=== PATIENT | male | born 1995 | race Caucasian/White ===

== ENCOUNTER 2022-07-27 23:25 | Emergency (ER) | payer SELFPAY ==
[~2022-07-27] VITALS: Ht 154.9 cm; Wt 47.3 kg
[2022-07-28 00:42] LABS: HEMATOCRIT 44.5 % (42.0-52.0); HEMOGLOBIN 14.3 g/dl (13.5-18.0); MEAN CELL VOLUME 80 fl (80.0-100.0); MEAN CORPUSCULAR HEMOGLOBIN 26 pg (27-31); MEAN CORPUSCULAR HGB CONC 32 g/dl (33.0-37.0); MEAN PLATELET VOLUME 9.9 fl (7.4-10.4); PLATELET COUNT 207 K/mm3 (130-400); RED BLOOD COUNT 5.56 M/mm3 (4.20-5.60); REDCELL DISTRIBUTION WIDTH-CV 15.7 % (11.5-14.5)
[2022-07-28 00:51] LABS: ALBUMIN 4.1 gm/dL (3.5-5.0); BILIRUBIN,TOTAL 0.6 mg/dL (0.2-1.2); C-REACTIVE PROTEIN 5.51 mg/dL (0.00-0.50); CALCIUM 9.8 mg/dL (8.4-10.2); CREATININE, serum 0.83 mg/dL (0.72-1.25); POTASSIUM 4.5 mmol/L (3.5-4.5); TOTAL PROTEIN 7.4 gm/dL (6.2-8.1)
[2022-07-28 00:58] LABS: BAND 16 % (0-10); LYMPHOCYTE 2 % (20.0-51.0); NEUTROPHILS 77 % (42.0-75.2); PLATELET ESTIMATE NORMAL (NORMAL)
[2022-07-28 03:54] VITALS: BP 119/78; PULSE 112; TEMP 98.1
== END 2022-07-28 03:54 | disposition home or self-care (01) ==
LOC: COL.ER 23:25
PROVIDERS: Emergency Medicine
DX: N20.0 Calculus of kidney (principal); N99.528 Other complication of incontinent external stoma of urinary tract; J18.9 Pneumonia, unspecified organism; R00.0 Tachycardia, unspecified; Z28.310 Unvaccinated for COVID-19
CPT/HCPCS: A9284; J1170; J1885; J2405; J7030

== ENCOUNTER → 2022-07-27 | Outpatient (CLI) | payer SELFPAY ==
[2022-07-27] VITALS (24 sets, daily range): BP systolic 106–151; BP diastolic 50–104; PULSE 98–118; TEMP 98.2
[~2022-07-27] VITALS: Ht 154.9 cm; Wt 50.8 kg
[~2022-07-27] MED LIST: CIPRO 500MG TA500 MG PO; LEVAQUIN 5500 MG/TA1 PO; NAPROSYN500 MG PO; OMNICEF 300MG300 MG PO; PERCOCET 325 MG1 TA2 PO; ZOFRAN ODT4 MG PO
--- NOTE | 2022-07-27 11:45 | NUR ---
PT VERY AGITATED AND MOVING ON THE TABLE. WAS GIVEN 1 MG VERSED AND 50 MCG [id number] AT 1140. PT SETTLED DOWN.
--- NOTE | 2022-07-27 11:50 | NUR ---
PT STILL MOVING A LITTLE BUT CAN BE REDIRECTED TO STAY STILL.
--- NOTE | 2022-07-27 11:55 | NUR ---
PT AGAIN MOVING . TRAYING TO CRAWL OFF TABLE. GIVEN 1 MG VERSED AND [address] CAMPOS. PT CALMED DOWN.
--- NOTE | 2022-07-27 12:15 | NUR ---
PT AGAIN IS TRYING TO CRAWL OFF THE TABLE . GIVEN 1 MG VERSED AND 50 MCG OF FENTANYL, PER DR CAMPOS. PT CALMED DOWN
== END ==
LOC: COL.RAD 09:45
DX: N20.1 Calculus of ureter (principal)
CPT/HCPCS: J2250; J3010; Q9967

== ENCOUNTER 2022-09-15 20:34 | Emergency (ER) | payer SELFPAY ==
[~2022-09-15] VITALS: Ht 154.9 cm; Wt 47.7 kg
[2022-09-15 20:41] VITALS: TEMP 98.5
[2022-09-15 21:21] LABS: BASO # 0.1 K/mm3 (0.0-0.2); BASO % 0.7 % (0.0-2.0); EOS # 0.3 K/mm3 (0.0-0.7); EOS % 3.6 % (0.0-4.0); GRAN # 4.7 K/mm3 (1.4-6.5); HEMATOCRIT 41.8 % (42.0-52.0); HEMOGLOBIN 13.6 g/dl (13.5-18.0); LYMPH # 2.6 K/mm3 (1.2-3.4); LYMPH % 31.1 % (20.0-51.0); MEAN CELL VOLUME 79 fl (80.0-100.0); MEAN CORPUSCULAR HEMOGLOBIN 26 pg (27-31); MEAN CORPUSCULAR HGB CONC 33 g/dl (33.0-37.0); MEAN PLATELET VOLUME 9.7 fl (7.4-10.4); MONO # 0.7 K/mm3 (0.1-0.6); MONO % 8.5 % (1.7-9.3); PLATELET COUNT 360 K/mm3 (130-400); RED BLOOD COUNT 5.32 M/mm3 (4.20-5.60); REDCELL DISTRIBUTION WIDTH-CV 14.4 % (11.5-14.5)
[2022-09-15 21:43] LABS: ALBUMIN 4.3 gm/dL (3.5-5.0); BILIRUBIN,TOTAL 0.8 mg/dL (0.2-1.2); CALCIUM 9.6 mg/dL (8.4-10.2); CREATININE, serum 0.94 mg/dL (0.72-1.25); POTASSIUM 3.6 mmol/L (3.5-4.5)
[2022-09-15 23:25] LABS: COLLECTION METHOD CLEAN CATCH
[2022-09-15 23:35] LABS: MUCOUS Present (NOT PRESENT); SQUAMOUS EPITHELIAL None Seen /hpf (0-10); URINE BACTERIA Rare /hpf (NONE SEEN); URINE RBC 20-50 /hpf (0-2)
[2022-09-15 23:38] LABS: URINE APPEARANCE Clear (CLEAR/HAZY); URINE COLOR Yellow (YELLOW)
[2022-09-15 23:39] LABS: PH 6.5 (5.0-8.5); URINE BLOOD 3+ (NEGATIVE); URINE GLUCOSE Negative (NEGATIVE); URINE KETONE 4+ (NEGATIVE); URINE NITRATE Negative (NEGATIVE); URINE PROTEIN(semi-quant) 2+ (NEGATIVE); URINE UROBILINOGEN 0.2 E.U/dL (0.2-1.0)
[2022-09-15 23:46] VITALS: BP 128/82; PULSE 86
== END 2022-09-15 23:46 | disposition home or self-care (01) ==
LOC: COL.ER 20:34
PROVIDERS: Emergency Medicine
DX: R33.9 Retention of urine, unspecified (principal); F17.200 Nicotine dependence, unspecified, uncomplicated; Z28.310 Unvaccinated for COVID-19; Z87.442 Personal history of urinary calculi
CPT/HCPCS: J1885; J2270; J3010; J7030

== ENCOUNTER 2023-10-03 14:40 | Emergency (ER) | payer OTHER ==
[~2023-10-03] VITALS: Ht 154.9 cm; Wt 51.4 kg
[~2023-10-03 14:40] MED LIST changes: +ULTRAM 50MG TAB50 MG PO
[2023-10-03 14:44] VITALS: TEMP 98.1
[2023-10-03 15:51] LABS: COLLECTION METHOD CATHETER
[2023-10-03 16:06] LABS: URINE APPEARANCE CLEAR (CLEAR/HAZY); URINE BLOOD NEGATIVE (NEGATIVE); URINE COLOR YELLOW (YELLOW); URINE GLUCOSE NEGATIVE (NEGATIVE); URINE KETONE NEGATIVE (NEGATIVE); URINE NITRATE NEGATIVE (NEGATIVE); URINE PROTEIN(semi-quant) NEGATIVE (NEGATIVE); URINE UROBILINOGEN 0.2 E.U/dL (0.2-1.0)
[2023-10-03 16:55] LABS: BASO # 0.1 K/mm3 (0.0-0.2); BASO % 0.8 % (0.0-2.0); EOS # 0.1 K/mm3 (0.0-0.7); EOS % 1.6 % (0.0-4.0); GRAN # 4.9 K/mm3 (1.4-6.5); GRAN % 62.3 % (42.2-75.2); HEMATOCRIT 48.6 % (42.0-52.0); HEMOGLOBIN 15.9 g/dl (13.5-18.0); LYMPH # 2.1 K/mm3 (1.2-3.4); LYMPH % 26.7 % (20.0-51.0); MEAN CELL VOLUME 81 fl (80.0-100.0); MEAN CORPUSCULAR HEMOGLOBIN 26 pg (27-31); MEAN CORPUSCULAR HGB CONC 33 g/dl (33.0-37.0); MEAN PLATELET VOLUME 9.8 fl (7.4-10.4); MONO # 0.7 K/mm3 (0.1-0.6); MONO % 8.2 % (1.7-9.3); PLATELET COUNT 340 K/mm3 (130-400); RED BLOOD COUNT 6.04 M/mm3 (4.20-5.60); REDCELL DISTRIBUTION WIDTH-CV 13.9 % (11.5-14.5)
[2023-10-03 17:11] LABS: BILIRUBIN,TOTAL 0.2 mg/dL (0.2-1.2); CALCIUM 9.6 mg/dL (8.4-10.2); CREATININE, serum 0.89 mg/dL (0.72-1.25); POTASSIUM 4.3 mEq/L (3.5-4.5); TOTAL PROTEIN 6.8 g/dl (6.2-8.1)
[2023-10-03] MEDS ORDERED: DOXYCYCLINE 10100 MG PO (17:27)
[2023-10-03] MEDS ORDERED: cefTRIAXone 1 G,Lidocaine PF 1% 2.1 ML IM ONE (17:30)
[2023-10-03 17:52] VITALS: BP 119/89; PULSE 84
== END 2023-10-03 18:03 | disposition home or self-care (01) ==
LOC: COL.ER 14:40
PROVIDERS: Nurse Practitioner
DX: R30.0 Dysuria (principal); R10.2 Pelvic and perineal pain; Z88.0 Allergy status to penicillin
CPT/HCPCS: J0696